=== PATIENT | female | born 1975 | race Caucasian/White ===

== ENCOUNTER 2018-09-01 11:04 | Outpatient (CLI) | payer OTHER ==
--- NOTE | 2018-09-01 16:44 | Mammography Report ---
Reason: SCREENING MAMMO Procedure Date: 09/01/2018 Accession Number: [id number] / [id number] Procedure: JOHNNY - Screening Mammo w/Negro CPT Code: FULL RESULT: EXAM: Screening Mammo w/Negro DATE: 09/01/2018 11:54 AM CLINICAL HISTORY: Routine screening. No reported personal or family history of breast cancer. TECHNIQUE: Bilateral CC and MLO views were obtained. COMPARISON: 01/11/2013 FINDINGS: The breasts demonstrate extremely dense parenchyma bilaterally, limiting the sensitivity of mammography. Left breast: There is a 16 mm one view asymmetry seen superior left breast MLO view only, 6 cm from nipple. Reference 3-D slice 6. There are no suspicious calcifications or areas of distortion. Right breast: There are no suspicious masses, calcifications or areas of distortion. IMPRESSION: Incomplete examination RECOMMENDATION: Left breast: 16 mm one view asymmetry MLO view only as described. Incomplete. BI-RADS Category 0. Additional imaging and possible ultrasound recommended. Right breast: Negative. BI-RADS Category 1. Recommend annual screening mammography. BI-RADS CATEGORY 0: Incomplete examination STANDARD QUALIFYING STATEMENTS: 1. This examination was not reviewed with the aid of Computer-Aided Detection (CAD). 2. A negative or benign imaging report should not preclude biopsy if clinically suspicious findings are present. 3. Dense breasts may obscure an underlying neoplasm. 4. This examination was reviewed with the aid of 3D breast imaging (tomosynthesis).
== END 2018-09-01 11:05 | disposition home or self-care (01) ==
LOC: DI 11:04
DX: Z12.31 Encounter for screening mammogram for malignant neoplasm of breast (principal); R92.8 Other abnormal and inconclusive findings on diagnostic imaging of breast
CPT/HCPCS: 77063; 77067

== ENCOUNTER 2018-09-14 09:38 | Outpatient (CLI) | payer OTHER ==
--- NOTE | 2018-09-14 15:36 | Mammography Report ---
Reason: ABN MAMMO - LT SPEC VIEWS Procedure Date: 09/14/2018 Accession Number: [id number] / [id number] Procedure: JOHNNY - Diag Special Views Dig LT CPT Code: FULL RESULT: EXAM: Diag Special Views Dig LT DATE: 09/14/2018 11:03 AM CLINICAL HISTORY: Diagnostic left breast mammogram for abnormal finding on screening. TECHNIQUE: Left breast CC, laterally exaggerated CC and left ML as well as spot MLO views were obtained. Focused left breast ultrasound was performed. COMPARISON: 09/01/2018 through 01/11/2013. FINDINGS: Left breast parenchymal tissue is extremely dense. The previously seen asymmetry is localized on the left spot MLO view with an appearance corresponding to background parenchyma and no suspicious findings on the laterally exaggerated and standard cc views. Focused left breast ultrasound of the same area demonstrates normal parenchyma. No suspicious calcifications, architectural distortion or mass is identified. IMPRESSION: Negative examination RECOMMENDATION: Recommend routine annual Screening mammography unless otherwise clinically indicated. BIRADS CATEGORY 1: Negative STANDARD QUALIFYING STATEMENTS: 1. This examination was not reviewed with the aid of Computer-Aided Detection (CAD). 2. A negative or benign imaging report should not delay biopsy if clinically suspicious findings are present. Consider surgical consultation if warrented. More than 5% of cancers are not identified by imaging. 3. Dense breasts may obscure an underlying neoplasm. 4. This examination was reviewed with the aid of 3D imaging (tomography).
== END 2018-09-14 09:39 | disposition home or self-care (01) ==
LOC: DI 09:38
PROVIDERS: ATTEND Family Medicine
DX: R92.8 Other abnormal and inconclusive findings on diagnostic imaging of breast (principal)
CPT/HCPCS: 76642

== ENCOUNTER 2021-03-12 10:29 | Outpatient (CLI) | payer OTHER ==
--- NOTE | 2021-03-13 13:11 | Mammography Report ---
BILATERAL DIGITAL SCREENING MAMMOGRAM 3D/2D: 03/12/2021 CLINICAL: Routine screening. Comparison is made to exams dated: 09/14/2018 mammogram, 09/14/2018 ultrasound, 09/01/2018 mammogram, ultrasound, and 01/11/2013 mammogram - [facility]. The tissue of both breas ts is extremely dense, which lowers the sensitivity of mammography. No significant masses, calcifications, or other findings are seen in either breast. There has been no significant interval change. IMPRESSION: NEGATIVE There is no mammographic evidence of malignancy. A 1 year screening mammogram is recommended. This exam was interpreted at Station ID: [id number]. NOTE: For mammograms, a report in lay terms will be sent to the patient. Approximately 15% of breast malignancies will not be visualized mammographically. In the management of a palpable breast mass, a negative mammogram must not discourage biopsy of a clinically suspicious lesion. Electronically Signed By: Dago wray/radha:03/12/2021 11:12:56 ACR BI-RADS Category 1: Negative 3341F PARENCHYMAL PATTERN: (VD) - The breast(s) demonstrate(s) extremely dense parenchyma, limiting the sen sitivity of mammography. BI-RADS CATEGORY: (1) - 1 RECOMMENDATION: (ANNUAL) - Recommend routine annual screening mammography. [id number] 1 year screening LATERALITY: (B)
== END 2021-03-12 10:30 | disposition home or self-care (01) ==
LOC: DI 10:29
DX: Z12.31 Encounter for screening mammogram for malignant neoplasm of breast (principal)

== ENCOUNTER 2022-07-27 15:23 | Outpatient (CLI) | payer OTHER ==
--- NOTE | 2022-07-28 10:05 | Mammography Report ---
BILATERAL DIGITAL SCREENING MAMMOGRAM 3D/2D WITH EXAGGERATED CC: 07/27/2022 CLINICAL: Routine screening. Comparison is made to exams dated: 03/12/2021 mammogram, 09/14/2018 mammogram, 09/01/2018 mammogram, and 01/11/2013 mammogram - [facility]. Both breasts are extremely dense, which lowers the sensitivity of mammography (category d />75% gland ular tissue). No significant masses, calcifications, or other findings are seen in either breast. There has been no significant interval change. IMPRESSION: NEGATIVE There is no mammographic evidence of malignancy. A 1 year screening mammogram is recommended. Based on the Tyrer Cuzick model (a risk assessment model) the patients lifetime risk is 14.8% and he r 10 year risk is 3.4%. According to the ACR, ACS, and NCCN guidelines, an annual breast MRI exam tre ng with mammogram is recommended if the patients lifetime risk is 20% or greater. This exam was interpreted at Station ID: [id number]. NOTE: For mammograms, a report in lay terms will be sent to the patient. Approximately 15% of breast malignancies will not be visualized mammographically. In the management of a palpable breast mass, a negative mammogram must not discourage biopsy of a clinically suspicious lesion. Electronically Signed By: Darrel burgos/radha:07/28/2022 07:32:34 ACR BI-RADS Category 1: Negative 3341F PARENCHYMAL PATTERN: (VD) - The breast(s) demonstrate(s) extremely dense parenchyma, limiting the sen sitivity of mammography. BI-RADS CATEGORY: (1) - 1 RECOMMENDATION: (ANNUAL) - Recommend routine annual screening mammography. [id number] 1 year screening LATERALITY: (B)
== END 2022-07-27 15:24 | disposition home or self-care (01) ==
LOC: DI 15:23
DX: Z12.31 Encounter for screening mammogram for malignant neoplasm of breast (principal)

== ENCOUNTER 2022-07-30 13:54 | Emergency (ER) | payer OTHER ==
[2022-07-30 14:05] VITALS: BP 143/100
[2022-07-30] MEDS ORDERED: BUFFERED LIDOCAINE 10 ML SYRINGE SUBQ STA (14:12)
[2022-07-30] MEDS ORDERED: AMOX/CLAV 875 MG/125 MG TABLET PO STA (14:26)
--- NOTE | 2022-07-30 14:29 | ED Physician Documentation ---
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 This was just prior to arrival.) PD PAST MEDICAL HISTORY - Present Medications Home Medications: Ambulatory Orders Medication Instructions Recorded Confirmed Amox/Clav 875/125 [Augmentin] 1 each PO Q12H #10 tablet 07/30/22 - Allergies Allergies/Adverse Reactions: Allergies Allergy/AdvReac Type Severity Reaction Status Date / Time No Known Drug Allergies Allergy Verified 07/30/22 14:05 PD ED PE NORMAL - Vitals Vital signs reviewed: Yes - General General: Alert and oriented X 3, No acute distress - Extremities Extremities: Other (There are several puncture wounds on the palmar and dorsal surface around the distal second right metacarpal. There is an L-shaped laceration on the palmar side that merit suturing and a smaller laceration on the dorsal side that merit suturing. nVI First through third digits, normal tendon functio) - Neuro Neuro: Alert and oriented X 3, Normal speech Results - Vitals Vitals: Vital Signs - 24 hr 07/30/22 13:59 Temperature 36.5 C Heart Rate 92 Respiratory 14 Rate Blood Pressure 143/100 H O2 Saturation 100 Oxygen O2 Source Room air - Rads (name of study) Three-view x-ray of the right hand is negative Radiology: Final report received, EMP read indepedently Procedures - Laceration (location) Right hand Length in cm: 1 Wound type: Irregular (L-shaped), Into subcut fat, Other (Palmar surface) Neurovascular status: Sensory intact, Motor intact, Vascular intact Anesthesia: Lidocaine 1%, With bicarb Wound preparation: Irrigated copiously NS Skin layer closure: Nylon, Interrupted, Size #-0 - enter number (4-0), Sutures - enter # (3) Other: Patient tolerated well, No complications, Neurovascular intact, Tetanus U TD R hand #2 Length in cm: 1 Wound type: Linear (Dorsal surface) Neurovascular status: Sensory intact, Motor intact, Vascular intact Anesthesia: Lidocaine 1%, With bicarb Wound preparation: Irrigated copiously NS Skin layer closure: Nylon, Interrupted, Size #-0 - enter number (4-0), Sutures - enter # (1) Other: Patient tolerated well, No complications, Neurovascular intact Departure - Departure Disposition: 01 Home, Self Care Clinical Impression: Dog bite, hand Qualifiers: Encounter type: initial encounter Laterality: right Qualified Code(s): S61.451A - Open bite of right hand, initial encounter Condition: Good Record reviewed to determine appropriate education?: Yes Instructions: ED Bite Animal General, ED Laceration Hand Prescriptions: Amox/Clav 875/125 [Augmentin] 1 each PO Q12H #10 tablet Comments: I sent your prescription electronically to the [facility] pharmacy at the corner of [address] [facility] here in [place]. Come back for any signs of infection which would include: Redness, swelling, drainage, increased pain, or fevers. You can wash it soap and water. Keep it covered and moist with bacitracin ointment which is available over the counter; avoid neosporin. Follow-up with your physician in about 14 days for suture removal. Discharge Date/Time: 07/30/22 14:53
--- NOTE | 2022-07-30 15:00 | XRAY Report ---
PROCEDURE: Hand 3 View RT INDICATIONS: dog bite TECHNIQUE: 3 views of the hand(s) acquired. COMPARISON: None FINDINGS: Bones: No fractures or dislocations. No suspicious bony lesions. Soft tissues: No suspicious soft tissue calcifications. IMPRESSION: No visualized acute fracture or dislocation. However, occult injury cannot be excluded. Recommend zaki rt interval imaging follow-up in 7-10 days as clinically indicated for additional evaluation. Reviewed by: Sally Hernadez MD on 07/30/2022 2:59 PM PST Approved by: Sally Hernadez MD on 07/30/2022 2:59 PM PST Station ID: [id number]
== END 2022-07-30 14:53 | disposition home or self-care (01) ==
LOC: ED 13:54
DX: S61.451A Open bite of right hand, initial encounter (principal); W54.0XXA Bitten by dog, initial encounter
CPT/HCPCS: 1040M; 12001; 73130; 99283; A9270

== ENCOUNTER 2023-01-11 18:30 | Emergency (ER) | payer OTHER ==
[2023-01-11] MEDS ORDERED: oxyCODONE 5 MG TABLET PO STA (18:49)
--- NOTE | 2023-01-11 19:59 | ED Physician Documentation ---
PD HPI HEAD INJURY - Stated complaint Stated Complaint: HEAD LAC - Chief complaint Chief Complaint: Laceration - History obtained from History obtained from: Patient, Family - History of Present Illness Mechanism of head injury: Blow Location of injury: Right Quality of pain: Throbbing Symptoms worsen with: Palpation, Movement Contributing factors: No: Anticoagulated, Intoxicated - Additional information Additional information: This is a very nice 47-year-old female who presents after getting kicked by a horse on the right side of the head. 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 She did not lose consciousness. She is not on any anticoagulation. She has some pain in the area and some dizziness but no Neurologic changes. The patient was evaluated by her daughter's partner who is a ER physician and she was brought in here for further evaluation and possible repair of scalp laceration. PD PAST MEDICAL HISTORY - Past Medical History Past Medical History: No - Present Medications Home Medications: Ambulatory Orders Medication Instructions Recorded Confirmed Amox/Clav 875/125 [Augmentin] 1 each PO Q12H #10 tablet 07/30/22 Amox/Clav 875/125 [Augmentin] 1 tab PO Q12H #20 tablet 08/09/22 oxyCODONE [Roxicodone] 5 mg PO Q6H PRN #12 tablet 01/11/23 - Allergies Allergies/Adverse Reactions: Allergies Allergy/AdvReac Type Severity Reaction Status Date / Time No Known Drug Allergies Allergy Verified 01/11/23 18:36 PD ED PE NORMAL - Vitals Vital signs reviewed: Yes - General General: Alert and oriented X 3, No acute distress, Well developed/nourished - HEENT HEENT: PERRL, EOMI, Moist mucous membranes, Other (There is a V-shaped flap laceration of the right parietal scalp that is approximately 3 x 3 cm.) - Neck Neck: Supple, no meningeal sign, No bony TTP - Cardiac Cardiac: RRR, No murmur - Respiratory Respiratory: No respiratory distress, Clear bilaterally - Neuro Neuro: Alert and oriented X 3, No motor deficit, No sensory deficit, Normal speech Eye Opening: Spontaneous Motor: Obeys Commands Verbal: Oriented GCS Score: 15 Results - Vitals Vitals: Vital Signs - 24 hr 01/11/23 01/11/23 01/11/23 18:33 20:52 21:01 Temperature 37.0 C Heart Rate 75 69 69 Respiratory 20 18 18 Rate Blood Pressure 112/68 105/71 105/71 O2 Saturation 100 100 100 Oxygen O2 Source Room air - Rads (name of study) No standard instances Relevant Findings:: Final report received Procedures - Laceration (location) Scalp right Wound type: Linear, Flap Wound preparation: Irrigated copiously NS Skin layer closure: [place] (9 rody) Other: Patient tolerated well, Tetanus booster given PD Medical Decision Making - ED course Complexity details: reviewed results, re-evaluated patient, considered differential, d/w patient ED course: 47-year-old female presents after getting kicked in the parietal scalp by a horse. She sustained a scalp laceration and tenderness to the right side of the scalp.She had no loss of consciousness or acute neurologic changes but given the degree of force, we did obtain a head CT which shows no intracranial hemorrhage or Skull fracture. The patient scalp laceration was irrigated thoro ughly with normal saline and 9 rody were placed For hemostasis and wound edge approximation. The patient tolerated well. She did receive p.o. oxycodone here and we will discharge her with short course of oxycodone to use only as needed if ibuprofen or Tylenol not sufficient. I advised her to utilize a cool compress to help with pain and swelling, and to keep area clean but otherwise dry, do not soak. Rody can be removed in 10 to 14 days. Return precautions reviewed if new symptoms, neurologic changes, or signs of infection or other new concerns. She was given updated Tdap today. Patient discharged home in stable condition Departure - Departure Disposition: 01 Home, Self Care Clinical Impression: Scalp laceration Qualifiers: Encounter type: initial encounter Qualified Code(s): S01.01XA - Laceration without foreign body of scalp, initial encounter Closed head injury Qualifiers: Encounter type: initial encounter Qualified Code(s): S09.90XA - Unspecified in jury of head, initial encounter Condition: Good Instructions: ED Laceration Scalp Stitch Or Stap Prescriptions: oxyCODONE [Roxicodone] 5 mg PO Q6H PRN #12 tablet PRN Reason: Pain >8 Comments: Your rody can be removed in 10-14 days. You can shower but do not scrub the area and pat dry when you get out of the shower. You can use a cool compress to the area to help with pain and swelling. I have also given you a short course of oxycodone to use only as needed. Start with Tylenol and ibuprofen and if those are not sufficient you can try oxycodone though this is a narcotic so should be used carefully. Discharge Date/Time: 01/11/23 21:10
[2023-01-11] MEDS ORDERED: TETANUS/DIPHTHERIA/PERTUSSIS 0.5 ML SYRINGE IM ONE (20:03)
--- NOTE | 2023-01-11 20:34 | CT Report ---
PROCEDURE: HEAD WO INDICATIONS: kicked in head by horse TECHNIQUE: Noncontrast 4.5 mm thick angled axial sections acquired from the foramen magnum to the vertex. For r adiation dose reduction, the following was used: automated exposure control, adjustment of mA and/or kV according to patient size. COMPARISON: None. FINDINGS: Image quality: Excellent. CSF spaces: Basal cisterns are patent. No extra-axial fluid collections. Ventricles are normal in size and shape. Brain: No midline shift. No intracranial masses or hemorrhage. Nuñez-white matter interface is norm al. Skull and face: Small posterior right scalp hematoma. Calvarium and visualized facial bones are inta ct, without suspicious lesions. Sinuses: Visualized sinuses and mastoids are clear. IMPRESSION: No acute intracranial abnormality. Small right posterior scalp hematoma. Reviewed by: Sebastian Milian MD on 01/11/2023 8:33 PM PDT Approved by: Sebastian Milian MD on 01/11/2023 8:33 PM PDT Station ID: [id number]
[2023-01-11] MEDS ORDERED: oxyCODONE/ACET 5/325 Prepack 4 PO STA (20:43)
[2023-01-11 20:57] VITALS: BP 105/71
== END 2023-01-11 21:10 | disposition home or self-care (01) ==
LOC: ED 18:30
DX: S01.01XA Laceration without foreign body of scalp, initial encounter (principal); S09.90XA Unspecified injury of head, initial encounter; W55.12XA Struck by horse, initial encounter; Z23 Encounter for immunization
CPT/HCPCS: 12002; 90471; 99284

== ENCOUNTER 2023-10-11 14:31 | Outpatient (CLI) | payer BC ==
--- NOTE | 2023-10-12 11:15 | Mammography Report ---
BILATERAL DIGITAL SCREENING MAMMOGRAM 3D/2D: 10/11/2023 CLINICAL: Routine screening. Comparison is made to exams dated: 07/27/2022 mammogram, 03/12/2021 mammogram, and 09/01/2018 mammogram - [facility]. Both breasts are extremely dense, which lowers the sensitivity of mammography (category d />75% gland ular tissue). No significant masses, calcifications, or other findings are seen in either breast. There has been no significant interval change. IMPRESSION: NEGATIVE There is no mammographic evidence of malignancy. A 1 year screening mammogram is recommended. Based on the Tyrer Cuzick model (a risk assessment model) the patient's lifetime risk is 15.0% and he r 10 year risk is 3.6%. According to the ACR, ACS, and NCCN guidelines, an annual breast MRI exam tre ng with mammogram is recommended if the patient's lifetime risk is 20% or greater. This exam was interpreted at Station ID: [id number]. NOTE: For mammograms, a report in lay terms will be sent to the patient. Approximately 15% of breast malignancies will not be visualized mammographically. In the management of a palpable breast mass, a negative mammogram must not discourage biopsy of a clinically suspicious lesion. Electronically Signed By: Sebastian franklin/radha:10/12/2023 08:28:47 letter sent: No_Letter ACR BI-RADS Category 1: Negative 3341F PARENCHYMAL PATTERN: (VD) - The breast(s) demonstrate(s) extremely dense parenchyma, limiting the sen sitivity of mammography. BI-RADS CATEGORY: (1) - 1 RECOMMENDATION: (ANNUAL) - Recommend routine annual screening mammography. [id number] 1 year screening LATERALITY: (B)
== END 2023-10-11 14:32 | disposition home or self-care (01) ==
LOC: DI 14:31
DX: Z12.31 Encounter for screening mammogram for malignant neoplasm of breast (principal); R92.30 Dense breasts, unspecified

== ENCOUNTER 2024-01-12 06:28 | Day surgery (SDC) | payer BC ==
[~2024-01-12 06:28] MED LIST: PROPOFOL 200 MG/20 ML VIAL IVP ONE; PROPOFOL 500 MG/50 ML 500 MG/50 ML VIAL ONE
[2024-01-12] MEDS: LACTATED RINGERS 1,000 ML IV ONE ×2 (06:32→08:13)
[2024-01-12 06:52] VITALS: O2SAT 100
--- NOTE | 2024-01-12 07:10 | ANESTHESIA ---
Pre-Anesthesia VS, & Labs - Diagnosis Screening - Procedure Colonoscopy Vital Signs: Temp Pulse Resp BP Pulse Ox O2 Flow Rate 36.5 C 95 17 137/98 H 100 01/12/24 06:32 01/12/24 06:32 01/12/24 06:32 01/12/24 06:32 01/12/24 06:32 Height: 5 ft 2 in Weight (kg): 46 kg Body Mass Index: 18.5 BMI Classification: Normal - Is Patient ?: No Home Medications and Allergies Home Medications: Ambulatory Orders No Known Home Medications 01/11/24 No Known Home Medications 01/11/24 Allergies/Adverse Reactions: Allergies Allergy/AdvReac Type Severity Reaction Status Date / Time No Known Drug Allergies Allergy Verified 01/11/24 13:29 Anes History & Medical History - Medical History Cardiovascular: reports: None Pulmonary: reports: None Gastrointestinal: reports: None Urinary: reports: None Musculoskeletal: reports: None Endocrine/Autoimmune: reports: None Skin: reports: None Exam General: Alert, Oriented x3, Cooperative Dental: WNL Mouth Openin Fingerbreadth Mallampati classification: II Thyromental Distance: 4-6 cm Plan Anesthesia Type: MAC Consent for Procedure(s) Verified and Reviewed: Yes Code Status: Attempt Resuscitation ASA classification: 1-Healthy patient Is this case an emergency?: No
--- NOTE | 2024-01-12 07:29 | HISTORY & PHYSICAL EXAMINATION ---
Chief Complaint - Chief Complaint Chief Complaint: here for colonoscopy History of Present Illness - History Obtained From Records Reviewed: yes History obtained from: pt Exam Limitations: none - History of Present Illness HPI Comment/Other: here for colonoscopy for screening. no anemia, no fhx colon ca, no gi symptoms. History - Past Medical History Cardiovascular: reports: None Respiratory: reports: None Endocrine/Autoimmune: reports: None GI: reports: None : reports: None HEENT: reports: None Psych: reports: None Musculoskeletal: reports: None Derm: reports: None MRSA Hx?: No Meds/Allgy - Home Medications Home Medications: Ambulatory Orders Medication Instructions Recorded Confirmed No Known Home Medications 01/11/24 01/11/24 - Allergies Allergies/Adverse Reactions: Allergies Allergy/AdvReac Type Severity Reaction Status Date / Time No Known Drug Allergies Allergy Verified 01/11/24 13:29 Review of Systems - All Other Systems All Other Systems: reports: Reviewed and negative - Other Findings Other Findings: 10 pt ros as above otherwise unremarkable Exam - Vital Signs Vital Signs: Vital Signs x48h Temp Pulse Resp BP Pulse Ox 01/12/24 06:32 36.5 C 95 17 137/98 H 100 - Physical Exam General Appearance: positive: No acute distress, Alert Eyes Bilateral: positive: PERRL, EOMI Neck: positive: No JVD, Trachea midline Respiratory: positive: No respiratory distress Cardiovascular: positive: Regular rate & rhythm Abdomen: positive: No distention Neurologic/Psychiatric: positive: Oriented x3 Conclusion/Plan - Problem List (1) Colon cancer screening Conclusion/Plan: plan colonoscopy. parq held and consent obtained
[2024-01-12] MEDS ORDERED: PHENYLEPHRINE HCL 0.5 MG/5 ML AMPULE ONE (07:40)
[2024-01-12 08:50] VITALS: BP 111/86
--- NOTE | 2024-01-12 11:08 | ANESTHESIA POST OP EVALUATION ---
Anesthesia Post Eval - Post Anesthesia Eval Vitals: Last Vital Signs Temp 36.1 C L 01/12/24 08:13 Pulse 76 01/12/24 08:41 Resp 17 01/12/24 08:41 BP 111/86 H 01/12/24 08:41 Pulse Ox 100 01/12/24 08:41 O2 Flow Rate CV Function Including HR & BP: Stable Pain Control: Satisfactory Nausea & Vomiting: Negative Mental Status: Baseline Respiratory Status: Airway Patent Hydration Status: Satisfactory Anesthesia Complications: None
== END 2024-01-12 06:29 | disposition home or self-care (01) ==
LOC: SDS 06:28
PROVIDERS: ATTEND Surgery
DX: Z12.11 Encounter for screening for malignant neoplasm of colon (principal); K57.30 Diverticulosis of large intestine without perforation or abscess without bleeding
CPT/HCPCS: 45378; J2372; J7120